=== PATIENT | male | born 1960 ===

== ENCOUNTER → 2017-01-24 | Day surgery (SDC) | payer OTHER ==
[~2017-01-24] VITALS: Ht 170.2 cm; Wt 72.6 kg
[~2017-01-24] MED LIST: FLOMAX(MONOGRA0.4 MG PO; PERCOCET 325 MG1 TA2 PO
--- NOTE | 2017-01-24 19:12 | Operative Report ---
Operative/Inv Procedure Report Surgery Date: 01/24/17 Name of Procedure: Expiration penetrating injury left hand Operating microscope Repair, digital nerve to ulnar thumb and radial index Repair of digital nerve radial thumb Repair intrinsic muscles left thenar eminence x 2 Pre-Operative Diagnosis: Knife injury left hand Post-Operative Diagnosis: Same Estimated Blood Loss: scant Surgeon/Director Of [employer]: MAGAN DICK,PRAFUL Chawla Anesthesia: general endotracheal tube Operative/Procedure Note Note: The patient presents in a delayed fashion for evaluation of nerve injury was work related. The patient accidentally injured his left hand with a knife while opening a box. Patient complains of pain in the area electric-like in sensation with movement of the thumb and inability to feel the tip of the thumb both radial and ulnar as well as the radial aspect of the left nondominant index finger. We talked about surgical intervention no guarantees were given as to improvement or results. Very difficult to expect excellent outcomes and the patient's delay in presentation might hinder this as well. About the scarring process that takes place and this could prevent proper traveled in pulses and regeneration of the distal nerve. He talked about infection bleeding pain. The patient has some mild weakness of opposition but likely secondary to pain and fever. Clinically he has absent sensibility in the described patterns of innervation. I mentioned to the patient on number of occasions this is a devastating injury to loose sensibility to the thumb and index and that that is the result of the injury not the repair. Once the patient accepted at there were no guarantees given or implied and informed consent was signed today. He was brought to the operating room placed supine on the table intravenous sedation antibiotics were given and then laryngeal mask anesthesia was established. The left upper extremity was prepped and draped in usual sterile fashion. Tourniquet was placed on the proximal forearm. Curvilinear incision was placed around the thenar eminence on the left and deepened through the skin and subcutaneous tissue. Scar was identified and dissected free identifying cut ends of the nerves described above. Good debridement was carried out of the nerve ends and freed for the available distance. He then performed tension-free with the use of 8-0 nylon sutures Luis fashion. Fascicular repair was performed with fascicles that were not contained within the epineurium fully. Good coaptation was achieved. 2 partial injuries to the thenar musculature 2 were repaired with absorbable chromic suture. It was closed with absorbable suture and a blocking splint was placed on the thumb.
== END ==
LOC: STS 03:13
DX: S64.32XA Injury of digital nerve of left thumb, initial encounter (principal); S64.491A Injury of digital nerve of left index finger, initial encounter; S66.422A Laceration of intrinsic muscle, fascia and tendon of left thumb at wrist and hand level, initial encounter; S61.412A Laceration without foreign body of left hand, initial encounter; W26.0XXA Contact with knife, initial encounter; K21.9 Gastro-esophageal reflux disease without esophagitis
CPT/HCPCS: J0131; J0690; J1100; J1200; J2250; J2405; J2765